=== PATIENT | female | born 1940 | race Caucasian/White ===

== ENCOUNTER → 2016-10-16 | Outpatient (CLI) | payer MEDICARE ==
--- NOTE | 2016-10-16 09:54 | REPMRS ---
Patient History The patient states she had a clinical breast exam in August 2016. Patient is postmenopausal. No known family history of cancer. Took hormonal contraceptives for 14 years. Digital Mammo Screening Bilat: October 16, 2016 - Exam #: [id number] Bilateral CC and MLO view(s) were taken. Technologist: Shirley Sanchez, Technologist Prior study comparison: October 16, 2015, bilateral digital mammo screening bilat performed at [facility]. October 16, 2014, bilateral digital mammo screening bilat performed at [facility]. FINDINGS: The breast tissue is heterogeneously dense. This may lower the sensitivity of mammography. There has been no change in the appearance of the mammogram from the prior studies. There is a moderate amount of residual fibroglandular tissue which is fairly symmetric. There is no interval development of dominant mass, areas of architectural distortion, or clustered microcalcification typical of malignancy. ASSESSMENT: BI-RADS/ACR category 1 mammogram. Negative. Recommendation Routine screening mammogram in 1 year (for women over age 40). This mammogram was interpreted with the aid of an FDA-approved computer-aided dectection system. Electronically Signed By: Eugene Marino MD 10/16/16 0918
== END ==
LOC: M RAD 08:22
PROVIDERS: ATTEND Family Medicine
DX: Z12.31 Encounter for screening mammogram for malignant neoplasm of breast (principal)

== ENCOUNTER → 2017-10-19 | Outpatient (CLI) | payer MEDICARE | LOC: M RAD 07:08 | DX: Z12.31 Encounter for screening mammogram for malignant neoplasm of breast (principal) | CPT/HCPCS: 77067 ==

== ENCOUNTER → 2018-12-07 | Outpatient (CLI) | payer MEDICARE ==
--- NOTE | 2018-12-07 10:42 | REPMRS ---
Patient History The patient states she has not had a clinical breast exam in over a year. No known family history of cancer. Took hormonal contraceptives for 14 years. 2D only. Patient could not move head out of the way. Also, patient was bit by something yesterday under right breast. I marked with a mole marker because patient was afraid it may show up. No breast complaints. Digital Mammo Screening Bilat: December 07, 2018 - Exam #: [id number] Bilateral CC and MLO view(s) were taken. Technologist: Shirley Sanchez, Technologist Prior study comparison: October 19, 2017, bilateral digital mammo screening bilat performed at [facility]. October 16, 2016, bilateral digital mammo screening bilat performed at [facility]. FINDINGS: There are scattered fibroglandular densities. Bilateral screening digital mammogram without tomosynthesis: The patient states that there are no palpable abnormalities or other breast complaints. The patient's [place] Lifetime Breast Carcinoma Risk is:1.5%. Additionally, the prior study dated 10/12/2013 is reviewed. A cutaneous marker identifies a skin lesion inferiorly on the right breast. There is no interval development of dominant mass, areas of architectural distortion, or clustered microcalcification typical of malignancy. This mammogram is interpreted with the aid of an FDA approved computer-aided detection system. Not all cancers are identified by mammography. Negative mammogram reports should not delay biopsy if a dominant or clinically suspicious mass is present. Adenosis and dense breasts may obscure an underlying neoplasm. No significant changes when compared with prior studies. Assessment: BI-RADS/ACR category 1 mammogram. Negative Mammogram. Recommendation Routine screening mammogram in 1 year (for women over age 40). This mammogram was interpreted with the aid of an FDA-approved computer-aided dectection system. A. Negative x-ray reports should not delay biopsy if a dominant or clinically suspicious mass is present. B. Not all cancers are identified by mammography. C. Adenosis and dense breast may obscure an underlying neoplasm. Electronically Signed By: Eugene Macias M.D. 12/07/18 1480
== END ==
LOC: M RAD 07:08
PROVIDERS: ATTEND Nurse Practitioner Family
DX: Z12.31 Encounter for screening mammogram for malignant neoplasm of breast (principal); Z92.0 Personal history of contraception

== ENCOUNTER 2022-09-28 07:26 | Day surgery (SDC) | payer MEDICARE ==
[~2022-09-28] VITALS: Ht 162.6 cm; Wt 69.9 kg
[~2022-09-28 07:26] MED LIST: ATEN50TA2 PO; BSS IRRIG/VANCO(10MG)/TOBRA(5MG)/EPINEPH(1:1000-0.5CC)500ML BAG-ORONLY IR ONE; CYCLOPENTOLATE 1% OPHTH SOLN 2ML BTL OD SCH; ENAL1TAB50 PO; LIDOCAINE 1% SDV 5ML VIAL As Ordered ONE; LIDOCAINE 3.5 % 1ML OPHTH TOPICAL GEL OU ONE; MIDAZOLAM 5MG/ML 1ML VIAL As Ordered ONE; OFLOXACIN 0.3 % (OCUFLOX) OPTH SOL 5ML OD ONE; PHENYLEPHRINE 10% OPHTH SOL 5ML OD PRN; PHENYLEPHRINE 2.5% OPHTH SOL 2ML OD SCH; SYNT75TA PO; TROPICAMIDE 1% OPHTH SOLN 15ML OD SCH
[2022-09-28 09:45] VITALS: BP 130/63
== END 2022-09-28 10:05 | disposition home or self-care (01) ==
LOC: M SDC 07:26
PROVIDERS: ATTEND Ophthalmology
DX: H25.11 Age-related nuclear cataract, right eye (principal); I10 Essential (primary) hypertension; E03.9 Hypothyroidism, unspecified; K58.8 Other irritable bowel syndrome; Z79.899 Other long term (current) drug therapy; Z88.0 Allergy status to penicillin
CPT/HCPCS: 66984; 92015; J2250; V2632

== ENCOUNTER 2022-10-19 07:23 | Day surgery (SDC) | payer MEDICARE ==
[~2022-10-19] VITALS: Ht 162.6 cm; Wt 68.5 kg
[~2022-10-19 07:23] MED LIST changes: -CYCLOPENTOLATE 1% OPHTH SOLN 2ML BTL OD SCH; +CYCLOPENTOLATE 1% OPHTH SOLN 2ML BTL OS SCH; -MIDAZOLAM 5MG/ML 1ML VIAL As Ordered ONE; +MIDAZOLAM INJ 2MG/2ML VIAL As Ordered ONE; -OFLOXACIN 0.3 % (OCUFLOX) OPTH SOL 5ML OD ONE; +OFLOXACIN 0.3 % (OCUFLOX) OPTH SOL 5ML OS ONE; -PHENYLEPHRINE 10% OPHTH SOL 5ML OD PRN; +PHENYLEPHRINE 10% OPHTH SOL 5ML OS PRN; -PHENYLEPHRINE 2.5% OPHTH SOL 2ML OD SCH; +PHENYLEPHRINE 2.5% OPHTH SOL 2ML OS SCH; -TROPICAMIDE 1% OPHTH SOLN 15ML OD SCH; +TROPICAMIDE 1% OPHTH SOLN 15ML OS SCH; +fentaNYL 100 MCG/2 ML INJECTION As Ordered ONE
[2022-10-19 09:02] VITALS: BP 140/73
== END 2022-10-19 09:50 | disposition home or self-care (01) ==
LOC: M SDC 07:23
PROVIDERS: ATTEND Ophthalmology
DX: H25.12 Age-related nuclear cataract, left eye (principal); I10 Essential (primary) hypertension; E03.9 Hypothyroidism, unspecified; K58.9 Irritable bowel syndrome, unspecified; Z90.710 Acquired absence of both cervix and uterus; Z87.891 Personal history of nicotine dependence; Z88.0 Allergy status to penicillin; Z79.899 Other long term (current) drug therapy; Z79.890 Hormone replacement therapy
CPT/HCPCS: 66984; 92015; J2250; J3010; V2632